=== PATIENT | male | born 1950 | race Caucasian/White ===

== ENCOUNTER 2023-04-21 12:59 | Observation (INO) | payer BC, OTHER ==
[~2023-04-21] VITALS: Ht 180.3 cm; Wt 111.4 kg
[2023-04-21 13:23] VITALS: BP_SYST 131; PULSE 106; RESP 20; TEMP 98.1; O2SAT 96
[2023-04-21] MEDS ORDERED: ASPIRIN 81 MG TAB.CHEW PO ONE (13:30)
[2023-04-21 13:40] LABS: BASOPHILS % (AUTO) 0.1 % (0.0-2.0); EOSINOPHILS % (AUTO) 0.5 % (0.0-4.0); HEMATOCRIT 45.2 % (36-54); HEMOGLOBIN 15.1 g/dL (14.0-18.0); LYMPHOCYTES # (AUTO) 0.7 K/uL (1.0-5.5); LYMPHOCYTES % (AUTO) 6.9 % (20.5-51.5); MEAN CORPUSCULAR HEMOGLOBIN 32 pg (27-31); MEAN CORPUSCULAR HGB CONC 33 % (32-36); MEAN CORPUSCULAR VOLUME 95 fL (79.0-98.0); MONOCYTES # (AUTO) 0.8 K/uL (0.0-1.0); MONOCYTES % (AUTO) 7.9 % (1.7-9.3); NEUTROPHILS # (AUTO) 8.2 K/uL (1.8-7.7); NEUTROPHILS % (AUTO) 84.6 % (40.0-70.0); PLATELET COUNT (AUTO) 149 K/uL (130-430); RED BLOOD CELL COUNT(AUTO) 4.75 MIL/uL (4.2-6.2); RED CELL DISTRIBUTION WIDTH 13.7 % (9.0-15.0); WHITE BLOOD COUNT (AUTO) 9.7 K/uL (4.8-10.8)
[2023-04-21 13:53] LABS: ANION GAP 9 (5-15); CALCIUM 8.7 mg/dL (8.4-11.0); CARBON DIOXIDE 27 mmol/L (23-29); CHLORIDE 101 mmol/L (98-107); CREATININE 0.81 mg/dL (0.55-1.30); GFR AFRICAN AMERICAN 121 mL/min (>90); GFR NON AFRICAN-AMERICAN 100 mL/min (>90); GLUCOSE 123 mg/dL (74-106); SODIUM SERUM 137 mmol/L (136-145); UREA NITROGEN, BLOOD 13 mg/dL (8-21)
[2023-04-21 13:59] LABS: ALANINE AMINOTRANSFERASE 27 U/L (12-78); ALBUMIN 3.6 g/dL (3.4-4.8); ASPARTATE AMINOTRANSFERASE 23 U/L (10-37); TOTAL BILIRUBIN 0.7 mg/dL (0.0-1.0); TOTAL PROTEIN, SERUM 6.8 g/dL (6.4-8.3)
[2023-04-21 14:03] LABS: INFLUENZA TYPE A negative (NEGATIVE); INFLUENZA TYPE B NEGATIVE (NEGATIVE)
[2023-04-21 14:52] LABS: ABG O2 SAT% ESTIMATE 96.1 % (94.0-100.0); ALLEN'S TEST POSITIVE (P); BLOOD GAS BASE EXCESS 0.3 mmol/L (-3.0-3.0); BLOOD GAS PCO2 31.8 mmHg (32.0-45.0); BLOOD GAS PH 7.477 (7.350-7.450); BLOOD GAS PO2 75.3 mmHg (75.0-100.0)
[2023-04-21] MEDS ORDERED: KETOROLAC TROMETHAMINE 30 MG VIAL IVP ONE (15:15)
[2023-04-21] MEDS ORDERED: DEXAMETHASONE SOD PHOSPHATE 10 MG/ML VIAL IVP ONE (15:15)
[2023-04-21] MEDS ORDERED: DECADRON 4 MG TABLET PO SCH (16:00)
[2023-04-21] MEDS ORDERED: ZOLPIDEM TARTRATE 5 MG TABLET PO PRN (16:00)
[2023-04-21] MEDS ORDERED: ACETAMINOPHEN 325 MG TABLET PO PRN (16:00)
[2023-04-21] MEDS ORDERED: MORPHINE 2 MG/ML INJ. SYRINGE IVP PRN ×2 (16:00)
[2023-04-21] MEDS ORDERED: POTASSIUM CHLORIDE 20 MEQ TAB.PRT.SR PO PRN (16:00)
[2023-04-21] MEDS ORDERED: DOCUSATE SODIUM 100 MG CAPSULE PO PRN (16:00)
[2023-04-21] MEDS ORDERED: ENOXAPARIN SODIUM 40 MG/0.4 ML SYRINGE SUBCUT ONE (16:00)
[2023-04-21] MEDS ORDERED: MAGNESIUM SULFATE 50 ML IV PRN (16:00)
[2023-04-21] MEDS ORDERED: IPRATROPIUM/ALBUTEROL SULFATE 3 ML AMPUL.NEB (DUONEB) INH PRN (16:00)
[2023-04-21] MEDS ORDERED: LORazepam 2 MG/ML VIAL IVP PRN (16:00)
[2023-04-21] MEDS ORDERED: MUPIROCIN 2% TOPICAL OINTMENT 22 GM NS PRN (16:00)
[2023-04-21] MEDS ORDERED: ONDANSETRON HCL 4 MG/2 ML VIAL IVP PRN (16:00)
[2023-04-21] MEDS ORDERED: ATOR40TA68 PO (19:02)
[2023-04-21] MEDS ORDERED: CLOP75TA32 PO (19:02)
[2023-04-21] MEDS ORDERED: ASPI-1393 PO (19:02)
[2023-04-21] MEDS ORDERED: PANT40TA45 PO (19:03)
[2023-04-21 19:55] VITALS: BP_SYST 113; PULSE 77; RESP 19; TEMP 99.1
[2023-04-22] VITALS: BP_SYST 109; PULSE 61; RESP 18; TEMP 98.1; O2SAT 95
[2023-04-22 06:46] LABS: HEMATOCRIT 47.3 % (36-54); HEMOGLOBIN 15.7 g/dL (14.0-18.0); LYMPHOCYTES # (AUTO) 0.6 K/uL (1.0-5.5); LYMPHOCYTES % (AUTO) 7.2 % (20.5-51.5); MEAN CORPUSCULAR HEMOGLOBIN 32 pg (27-31); MEAN CORPUSCULAR HGB CONC 33 % (32-36); MEAN CORPUSCULAR VOLUME 96 fL (79.0-98.0); MONOCYTES # (AUTO) 0.3 K/uL (0.0-1.0); MONOCYTES % (AUTO) 3.6 % (1.7-9.3); NEUTROPHILS # (AUTO) 7.8 K/uL (1.8-7.7); NEUTROPHILS % (AUTO) 89.2 % (40.0-70.0); PLATELET COUNT (AUTO) 141 K/uL (130-430); RED BLOOD CELL COUNT(AUTO) 4.92 MIL/uL (4.2-6.2); RED CELL DISTRIBUTION WIDTH 13.8 % (9.0-15.0); WHITE BLOOD COUNT (AUTO) 8.7 K/uL (4.8-10.8)
[2023-04-22 07:02] LABS: CALCIUM 8.9 mg/dL (8.4-11.0); CREATININE 0.62 mg/dL (0.55-1.30)
[2023-04-22 07:30] VITALS: BP_SYST 124; PULSE 74; TEMP 99; O2SAT 18
[2023-04-22] MEDS ORDERED: ENOXAPARIN SODIUM 40 MG/0.4 ML SYRINGE SUBCUT SCH (09:00)
[2023-04-22] MEDS ORDERED: ALBMDI INH (10:19)
[2023-04-22 10:48] VITALS: BP_SYST 124; PULSE 74; RESP 18; TEMP 99; O2SAT 96
[2023-04-22 12:00] VITALS: BP_SYST 110; PULSE 66; RESP 18; TEMP 98; O2SAT 96
[2023-04-22 16:00] VITALS: BP_SYST 105; PULSE 85; RESP 18; TEMP 98.3; O2SAT 99
== END 2023-04-22 10:45 | disposition home or self-care (01) ==
LOC: SED 12:59 → STU 16:31
PROVIDERS: ADMIT General Practice; ATTEND General Practice
DX: U07.1 COVID-19 (principal); J96.90 Respiratory failure, unspecified, unspecified whether with hypoxia or hypercapnia; J45.909 Unspecified asthma, uncomplicated; I25.10 Atherosclerotic heart disease of native coronary artery without angina pectoris; I25.2 Old myocardial infarction; E78.5 Hyperlipidemia, unspecified; I10 Essential (primary) hypertension; Z78.9 Other specified health status; Z79.82 Long term (current) use of aspirin; Z79.899 Other long term (current) drug therapy
CPT/HCPCS: 96374; 96375; 80053; 83037; 83880; 85025 ×2; 84484; 36415 ×2; 93005; 71045; 36600; 82803; 99285; 87804 ×2; 87426; 96372; 80048; 83735; J1100; J1885; G0378 ×2; J1650